=== PATIENT | male | born 1995 | race Hispanic/Latino ===

== ENCOUNTER 2025-06-10 11:03 | Emergency (ER) | payer BC ==
[~2025-06-10] VITALS: Ht 170.2 cm; Wt 82.1 kg
[~2025-06-10 11:03] MED LIST: GLIP5TAB15 PO; INSU3INS3 SQ; METF-444 PO; SYRI-1628 MC
--- NOTE | 2025-06-10 11:13 | ERN ---
ED Note History of Present Illness Stated Complaint: CHEST PAIN Chief Complaint: Chest Pain Time Seen by MD: 11:08 Dictation: PATIENT IS A 29-YEAR-OLD MALE COMING IN TODAY WITH WHAT HE COMPLAINTS OF ANTERIOR CHEST PAIN PRESSURE THAT HAS BEEN INTERMITTENT FOR ONE WEEK. NO SHORTNESS A BREATH NO ARM PAIN NO BACK PAIN NO JAW PAIN. NO NAUSEA VOMITING. STATES HE HAS A DIABETIC, DOES NOT CHECK HIS BLOOD SUGARS BUT THE LAST TIME IT WAS CHECKED WAS GREATER THAN 200. HE DENIES ANY CARDIAC HISTORY NO NURSE SEXUAL ASSAULT IN HIS NOT SEEN HIS PRIMARY CARE DOCTOR. Allergies: Coded Allergies: No Known Allergies (Verified Allergy, Unknown, 08/21/20) Home Meds Active Scripts Syringe-Needle,Insulin,0.5 ml ([place] Insulin Syringe) 1 Each Disp.syrin, EACH [facility] HS for insulin administration, #100 Prov:LEONA SHAH Jr., MD 08/25/20 Insulin Glargine,Hum.rec.anlog (Lantus Solostar) 100 Unit/1 Ml Insuln.pen, 15 UNIT SQ HS for 30 Days, #1 SYRINGE 3 Refills Prov:LEONA SHAH Jr., MD 08/25/20 Glipizide (Glipizide) 5 Mg Tablet, 5 MG PO BIDAC for 30 Days, #60 TAB Prov:LEONA SHAH Jr., MD 08/25/20 Metformin HCl (Metformin HCl) 500 Mg Tablet, 500 MG PO TIDMEALS for 30 Days, #90 TAB Prov:LEONA SHAH Jr., MD 08/25/20 Past Medical History RN Note Reviewed/Agreed w/PFSH: Yes Review of System Dictation CONSTITUTIONAL: NEGATIVE EXCEPT FOR HPI HEAD/FACE: NEGATIVE EXCEPT FOR HPI EENT: NEGATIVE EXCEPT FOR HPI RESPIRATORY: NEGATIVE EXCEPT FOR HPI ANTERIOR CHEST PAIN PRESSURE THAT HAS BEEN INTERMITTENT ONE WEEK GASTROINTESTINAL/ABDOMINAL: NEGATIVE EXCEPT FOR HPI GENITOURINARY: NEGATIVE EXCEPT FOR HPI MUSCULOSKELETAL: NEGATIVE EXCEPT FOR HPI INTEGUMENTARY: NEGATIVE EXCEPT FOR HPI NEUROLOGICAL/PSYCH: NEGATIVE EXCEPT FOR HPI HEMATOLOGIC/LYMPHATIC: NEGATIVE EXCEPT FOR HPI ALL SYSTEMS NEGATIVE, EXCEPT NOTED ABOVE. 13 POINT REVIEW OF SYSTEMS ASSESSED AND ALL NEGATIVE EXCEPT FOR ABOVE. Initial Vital Sign VS Vital Signs Date Time Temp Pulse Resp B/P (MAP) Pulse Ox O2 Delivery O2 Flow Rate FiO2 06/10/25 11:08 97.9 60 18 126/95 97 Room Air 0 Physical Exam Dictation VITAL SIGNS REVIEWED GENERAL APPEARANCE: ALERT, ORIENTED X 3, NO ACUTE DISTRESS, WELL DEVELOPED, NOURISHED. 0/10 PAIN HEAD AND FACE: NON-TRAUMATIC. EYES: PERRL, PINK CONJUNCTIVAS, EYELID NO TRAUMA, ANTERIOR CHAMBER WITH ARCUS SENILIS. EARS: PINNAS INTACT AND NO SIGNS OF TRAUMA OR ERYTHEMA EAR CANALS CLEAR AND NO DISCHARGE TM NO ERYTHEMA NOSE: NO DISCHARGE, NO BLEEDING. OROPHARYNX: MOUTH NORMAL, TONGUE PINK, PHARYNX CLEAR,NO ERYTHEMA, TONSILS NO EXUDATES, NO ABSCESSES NOTED, MUCOUS MEMBRANE MOIST NECK: SUPPLE, NON-TENDER, NO THYROMEGALY, NO MASSES, NO JVD, NO BRUITS BREAST:DEFERRED CHEST:NO TENDERNESS, NO CREPITUS, NO PARADOXICAL MOVEMENT, NO RETRACTIONS LUNGS:CLEAR, WELL-VENTILATED, SYMMETRIC, NO RALES, NO WHEEZING, NO RHONCHI, NO STRIDOR, GOOD BREATH SOUNDS BILATERALLY HEART: REGULAR RATE, REGULAR RHYTHM, NO MURMUR, NO GALLOPS VASCULAR: NO PERIPHERAL EDEMA, ABDOMEN: SOFT, POSITIVE BOWEL SOUNDS, NONDISTENDED, NO GUARDING, NONTENDER, NO REBOUND, NO MASSES NO HEPATOMEGALY, NO SPLENOMEGALY, NO JACKSON'S SIGN, NO HERNIAS. RECTAL: DEFERRED GENITAL: DEFERRED NEUROLOGICAL: NORMAL SPEECH, MOTOR FUNCTION INTACT, SENSORY FUNCTION INTACT MUSCULOSKELETAL: NECK NONTENDER, FULL RANGE OF MOTION, BACK NONTENDER, FULL RANGE OF MOTION, EXTREMITIES: NONTENDER, FULL RANGE OF MOTION SKIN: COLOR PINK, DRY, NO TURGOR, NO RASH, NO LACERATIONS, NO ABRASIONS, NO CO NTUSIONS. LYMPHATIC: DEFERRED Results (Laboratory/Radiology) Laboratory/Radiology Laboratory Tests Test 06/10/25 11:24 White Blood Count 3.9 K/uL (4.8-10.8) L Red Blood Count 5.46 MIL/uL (4.50-6.20) Hemoglobin 16.0 g/dL (14.0-18.0) Hematocrit 47.0 % (42-54) Mean Corpuscular Volume 86.1 fL (79-99) Mean Corpuscular Hemoglobin 29.3 pg (27.0-33.0) Mean Corpuscular Hemoglobin Concent 34.0 g/dL (32.0-36.0) Red Cell Distribution Width 11.7 % (11.0-15.5) Platelet Count 238 K/uL (130-400) Mean Platelet Volume 9.4 fL (7.5-10.5) Immature Granulocyte % (Auto) 0.0 % (0-1) Neutrophils (%) (Auto) 47.2 % (40.0-77.0) Lymphocytes (%) (Auto) 44.0 % (21.0-51.0) Monocytes (%) (Auto) 7.7 % (3.0-13.0) Eosinophils (%) (Auto) 0.8 % (0.0-8.0) Basophils (%) (Auto) 0.3 % (0.0-5.0) Neutrophils # (Auto) 1.9 K/uL (1.8-7.7) Lymphocytes # (Auto) 1.7 K/uL (1.0-4.8) Monocytes # (Auto) 0.3 K/uL (0.1-1.0) Eosinophils # (Auto) 0.03 K/uL (0.00-0.70) Basophils # (Auto) 0.01 K/uL (0.00-0.20) Absolute Immature Granulocyte (auto 0.00 K/uL (0-1) Nucleated Red Blood Cells 0.0 % (0.0-0.19) Sodium Level 139 mmol/L (136-145) Potassium Level 3.9 mmol/L (3.5-5.1) Chloride Level 99 mmol/L (101-111) L Carbon Dioxide Level 31 mmol/L (21-32) Blood Urea Nitrogen 12 mg/dL (7-18) Creatinine 0.8 mg/dL (0.5-1.3) Glomerular Filtration Rate Calc 124 mL/min (>90) Random Glucose 353 mg/dL (70-105) H Total Calcium 9.5 mg/dL (8.5-10.1) Troponin I High Sensitivity < 4 ng/L (4-75) L 1150/CHEST X-RAY NEGATIVE Labs Reviewed?: Yes EKG Comment: EKG SINUS BRADYCARDIA/HEART RATE 50/AXIS NORMAL/NO ECTOPY ED Course ED Course Orders Procedure Category Date Status Time Cbc With Differential LAB 06/10/25 Complete 11:10 Troponin I High LAB 06/10/25 Complete Sensitivity 11:10 12 Lead Ekg Tracing- EKG 06/10/25 Complete Technical 11:10 Chest 1vw RAD 06/10/25 Resulted 11:10 Basic Metabolic Panel LAB 06/10/25 Complete 11:10 Urinalysis Profile LAB 06/10/25 In Process 11:49 Vital Signs Date Time Temp Pulse Resp B/P (MAP) Pulse Ox O2 Delivery O2 Flow Rate FiO2 06/10/25 11:08 97.9 60 18 126/95 97 Room Air 0 1250/PATIENT WAS DISCHARGED FROM THE ER WAITING ROOM. CARDIAC WORKUP IS NEGATIVE CHEST X-RAY IS CLEAR BLOOD SUGAR IS 353 AND HE HAD NOT TAKEN HIS DIABETIC MEDICATIONS THIS MORNING AND ADVISED TO TAKE HIM UPON LEAVING WITH FOOD. ADDITIONALLY WAS TOLD TO FOLLOW UP WITH HIS PRIMARY CARE DOCTOR IN [facility] FOR MANAGEMENT OF HIS BLOOD SUGAR DIABETES HEART Score Response (Comments) Value History: Low suspicion (0) 0 EKG: Normal 0 Age: < 45yrs (0) 0 Risk Factors: No known risk factors (0) 0 Initial Troponin: Normal limit (0) 0 Total 0 Medical Decision Making MDM MDM: DIFFERENTIAL DIAGNOSIS: ACS/AMI/ELECTROLYTE IMBALANCE/DEHYDRATION/PNEUMONIA/BRONCHITIS/CHEST MASS/DIABETES RATIONALE: TESTS CONSIDERED AND ORDERED SECONDARY TO SHARED DECISION MAKING INCLUDE: RADIOLOGY/LABS/RADIOLOGY PREVIOUS OUTSIDE RECORDS REVIEWED: OLD ER VISITS. RISK OF COMPLICATION AND/OR MORBIDITY OR MORTALITY OF PATIENT MANAGEMENT: NONE MEDICATIONS-PER MEDICATION RECONCILIATION NEED FOR HOSPITALIZATION: PATIENT DOES NOT MEET CRITERIA FOR HOSPITALIZATION. NO NEED FOR EMERGENCY MAJOR/MINOR SURGERY: NO THERE ARE NO SOCIAL CONCERNS WITH THIS PATIENT. PRESCRIPTION DRUG MANAGEMENT NONE PRESCRIPTIONS WILL INCLUDE SYMPTOMATIC CARE PATIENT'S PRIOR EXTERNAL MEDICAL RECORDS FROM OTHER ER VISITS WERE REVIEWED BY ME INDICATED. PRIOR TESTING AND RESULTS FROM PREVIOUS VISITS WERE REVIEWED. PRIOR TESTS WERE TAKEN INTO ACCOUNT WITH MEDICAL DECISION MAKING AND RESOURCE UTILIZATION, INDEPENDENT HISTORIAN/HISTORIANS WERE USED TO OBTAIN COMPLETE MEDICAL HISTORY. I INDEPENDENTLY INTERPRETED THE TEST THAT WERE PERFORMED, RESULTS WERE REVIEWED BY ME AND CONSIDERED FINDINGS ON RADIOLOGY IF ORDERED. MEDICAL MANAGEMENT AND EXAMINATION INTERPRETATION DISCUSSIONS WERE HAD BY ME WITH OTHER QUALIFIED HEALTHCARE PROFESSIONALS INDICATED FOR THE PATIENT'S CARE. DX & DISP Disposition: Discharge Departure Impression: Primary Impression: Atypical chest pain Additional Impression: Uncontrolled diabetes mellitus Condition: Stable Additional Instructions: FOLLOW-UP WITH PRIMARY CARE PROVIDER IN 1 TO 2 DAYS. TAKE MEDICATIONS DIRECTED HERE IN THE EMERGENCY ROOM. OKAY TO CONTINUE HOME MEDICATIONS UNLESS OTHERWISE DISCUSSED DURING YOUR VISIT IN THE EMERGENCY ROOM TODAY. RETURN TO YOUR NEAREST EMERGENCY ROOM IF SYMPTOMS WORSEN OR IF THERE IS NO IMPROVEMENT. CALL 911 IF YOU NEED IMMEDIATE ASSISTANCE. TAKE TYLENOL OR MOTRIN [id number] NEEDED AND IF NO CONTRAINDICATIONS ARE PRESENT. INCREASE ORAL HYDRATION. A WOUND CULTURE OR URINE CULTURE WAS ORDERED HERE IN THE EMERGENCY ROOM DEPARTMENT PLEASE FOLLOW-UP WITH PRIMARY CARE PROVIDER AND ADVISE THEM TO GET REPEAT PORTS FROM OUR FACILITY. IF YOU HAD ANY SHANKAR WRAP/SPLINTS THAT WERE APPLIED HERE, PLEASE DO NOT REMOVE THEM UNTIL YOU SEE YOUR PRIMARY CARE OR SPECIALTY. TAKE YOUR DIABETIC MEDICATIONS DIRECTED. TAKE TYLENOL OR MOTRIN [id number] NEEDED FOR PAIN. FOLLOW UP WITH YOUR PRIMARY CARE DOCTOR FOR MANAGEMENT OF YOUR DIABETES. Referrals: SELF,REFERRAL (PCP) Time of Disposition: 12:55 I have reviewed the case, and I agree with, Diagnosis and Plan LESLIE CRUZ NP Jun 10, 2025 11:12
--- NOTE | 2025-06-10 11:17 | EKG ---
[facility] Test Date: 2025-06-10 Test Time: 11:11:20 Pat Name: CAPO HAMMOND Department: ED Room: Gender: M Back End Architect: [id number] : 1995 Requested By: LESLIE CRUZ Order Number: [id number] Reading MD: Pablo Kapoor Measurements Intervals [place] Rate: 50 P: 16 NH: 116 QRS: 38 QRSD: 97 T: 37 QT: 443 QTc: 406 Interpretive Statements Sinus rhythm Compared to ECG 08/20/2020 23:42:39 Sinus tachycardia no longer present Electronically Signed On 06-10-2025 21:34:59 CDT by Pablo Kapoor Please click the below link to view image of tracing.
[2025-06-10 11:30] LABS: IMMATURE GRANULOCYTE ABSOLUTE 0.00 K/uL (0-1); NUCLEATED RED BLOOD CELLS 0.0 % (0.0-0.19); PLATELET COUNT (AUTO) 238 K/uL (130-400); RED BLOOD CELL COUNT(AUTO) 5.46 MIL/uL (4.50-6.20); RED CELL DISTRIBUTION WIDTH 11.7 % (11.0-15.5); WHITE BLOOD COUNT (AUTO) 3.9 K/uL (4.8-10.8)
[2025-06-10 11:36] LABS: CREATININE 0.8 mg/dL (0.5-1.3); GLOMERULAR FILTR. RATE CALC 124.0 mL/min (>90); GLUCOSE,RANDOM 353.0 mg/dL (70-105); SODIUM SERUM 139.0 mmol/L (136-145); UREA NITROGEN, BLOOD 12.0 mg/dL (7-18)
--- NOTE | 2025-06-10 12:38 | HMCIMG ---
EXAM: CR Chest, 1 View. CLINICAL HISTORY: CHEST PAIN ONE WEEK COMPARISON: 08/21/20 2:02 EST CR - CHEST 1VW FINDINGS: LUNGS: The lungs show no infiltrate or other acute finding. PLEURAL SPACES: No pleural effusion or pneumothorax. MEDIASTINUM: Cardiac size and mediastinal contours within normal limits. BONES: No aggressive appearing osseous lesion seen. IMPRESSION: No acute cardiopulmonary pathology is evident. /[place]
[2025-06-10 13:06] LABS: APPEARANCE,URINE CLEAR (CLEAR); GLUCOSE, URINE (UA) >=1000 mg/dL (NEGATIVE); LEUKOCYTE ESTERASE ,URINE NEGATIVE Leu/uL (NEGATIVE); NITRATE,URINE NEGATIVE (NEGATIVE); OCCULT BLOOD,URINE NEGATIVE (NEGATIVE)
[2025-06-10 13:07] LABS: ADD UA MICROSCOPIC YES
[2025-06-10 13:14] VITALS: BP 128/78; PULSE 63; RESP 16; TEMP 98.1
== END 2025-06-10 13:23 | disposition home or self-care (01) ==
LOC: EDH 11:03
DX: R07.89 Other chest pain (principal); E11.65 Type 2 diabetes mellitus with hyperglycemia
CPT/HCPCS: 36415; 71045; 80048; 81001; 84484; 85025; 93005; 99284